=== PATIENT | male | born 1940 | race Caucasian/White ===

== ENCOUNTER 2016-08-24 11:31 | Emergency (ER) | payer MEDICARE, BC ==
[~2016-08-24] VITALS: Ht 177.8 cm; Wt 74.0 kg
[2016-08-24 11:35] VITALS: BP 184/78; PULSE 66; RESP 18; TEMP 97.8; O2SAT 100
[2016-08-24] MEDS ORDERED: LIDOCAINE 1%/EPINEPHrine 1:100,000 SOLN 20 ML VIAL INFIL ONE (11:45)
[2016-08-24] MEDS ORDERED: ASPI1TAB69 PO (11:58)
[2016-08-24] MEDS ORDERED: LOSA100T2 PO (11:58)
[2016-08-24] MEDS ORDERED: SYMB80AE INH (11:58)
[2016-08-24] MEDS ORDERED: OMEP20TA PO (11:58)
[2016-08-24] MEDS ORDERED: ALBUAER3 INH (11:58)
[2016-08-24] MEDS ORDERED: METO25TA3 PO (11:58)
[2016-08-24 12:01] LABS: AUTOMATED NEUTROPHIL # 8.4 TH/MM3 (1.8-7.7); BASOPHIL % 0.1 % (0.0-2.0); EOSINOPHIL # 0.1 TH/MM3 (0-0.4); EOSINOPHIL % 1.1 % (0.0-4.0); HEMATOCRIT 39.1 % (39.0-51.0); HEMO FLAGS DIFF FINAL; LYMPH % 8.2 % (9.0-44.0); LYMPHOCYTE # 0.8 TH/MM3 (1.0-4.8); MEAN CORPUSCULAR HEMOGLOBIN 28.6 PG (27.0-34.0); MEAN CORPUSCULAR HGB CONC 34.5 % (32.0-36.0); MONO % 6.1 % (0.0-8.0); NEUT % 84.5 % (16.0-70.0); PLATELET COUNT 152 TH/MM3 (150-450); RED CELL DISTRIBUTION WIDTH 13.6 % (11.6-17.2); WHITE BLOOD COUNT 9.9 TH/MM3 (4.0-11.0)
[2016-08-24 12:17] LABS: BICARBONATE 28.9 MEQ/L (21.0-32.0)
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
[2016-08-24 13:30] VITALS: BP 165/78; PULSE 76; RESP 17; O2SAT 100
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
[2016-08-24] MEDS ORDERED: IOHEXOL 350 MG/ML 10 ML VIAL (for RAD DIAG) IV ONE (13:57)
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
[2016-08-24] MEDS ORDERED: DICL75TA PO (14:45)
[2016-08-24] MEDS ORDERED: BACT800T5 PO (14:45)
[2016-08-24] MEDS ORDERED: HYDR-3533 PO (14:45)
[2016-08-24 15:00] VITALS: BP 140/81; TEMP 97.8
== END 2016-08-24 15:00 | disposition home or self-care (01) ==
LOC: NEPE 11:31
DX: S61.412A Laceration without foreign body of left hand, initial encounter (principal); S01.21XA Laceration without foreign body of nose, initial encounter; M79.641 Pain in right hand; M25.512 Pain in left shoulder; M25.571 Pain in right ankle and joints of right foot; M25.522 Pain in left elbow; V29.49XA Motorcycle driver injured in collision with other motor vehicles in traffic accident, initial encounter; Y93.89 Activity, other specified; Y92.411 Interstate highway as the place of occurrence of the external cause; R55 Syncope and collapse; F43.20 Adjustment disorder, unspecified; I10 Essential (primary) hypertension
CPT/HCPCS: 12001; 12011; 70450; 70486; 71260; 72125; 73080; 73120; 73130; 73610; 74177; 80048; 85025; 99284; Q9967; 93005; 96374; J2405; J7030

== ENCOUNTER 2016-08-24 16:13 | Emergency (ER) | payer MEDICARE, BC ==
[~2016-08-24 16:13] MED LIST: ALBUAER3 INH; ASPI1TAB69 PO; BACT800T5 PO; DICL75TA PO; HYDR-3533 PO; LOSA100T2 PO; METO25TA3 PO; OMEP20TA PO; SYMB80AE INH
[2016-08-24] MEDS ORDERED: SODIUM CHLOR 0.9% 1000 ML INJ 1,000 ML IV SCH (16:16)
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
[2016-08-24] MEDS ORDERED: SODIUM CHLORIDE 0.9% FLUSH 5 ML FLUSH IVF PRN (16:30)
[2016-08-24] MEDS ORDERED: ONDANSETRON HCL 4 MG/2 ML VIAL IVP ONE (16:30)
[2016-08-24 17:05] VITALS: O2SAT 97
[2016-08-24 17:21] VITALS: BP 136/65; PULSE 62; RESP 20; O2SAT 97
--- NOTE | 2016-08-25 19:28 | EKG ---
Date Performed: 08/24/2016 Time Performed: 15:30:09 PTAGE: 75 years EKG: Sinus rhythm MODERATE VOLTAGE CRITERIA FOR LVH, CONSIDER NORMAL VARIANT. BORDERLINE ECG NO PREVIOUS TRACING DOCTOR: Erasto Zaldivar Interpretating Date/Time 08/25/2016 19:27:27
== END 2016-08-24 18:44 | disposition home or self-care (01) ==
LOC: NEPA 16:13
DX: R55 Syncope and collapse (principal); F43.20 Adjustment disorder, unspecified; I10 Essential (primary) hypertension
CPT/HCPCS: 93005; 96374; 99284; J2405; J7030